=== PATIENT | female | born 1930 | race Caucasian/White ===

== ENCOUNTER 2017-01-17 10:09 | Inpatient (IN) | payer OTHER ==
[~2017-01-17] VITALS: Ht 165.1 cm; Wt 72.6 kg
--- NOTE | ~2017-01-17 | HC ---
[facility] [place] [address] CONSULTATION Name: MAXINE ASKEW Room #: 430-P [facility] IN M.R.#: [id number] Admission: 01/17/17 Attend Phys: Victor Manuel Swanson MD Discharge: Date of : [birth year] Report #: [id number] THIS REPORT FOR: //name// CC: FAM unknown Victor Manuel Swanson DATE OF SERVICE: 01/17/2017 REFERRING PROVIDER: Victor Manuel Swanson M.D. REASON FOR CONSULTATION: Rectal mass. HISTORY OF PRESENT ILLNESS: The patient is an 86-year-old female, who has had constipation for the last couple of days, where she was given a Dulcolax suppository with no relief. As the patient lives in an assisted living, the front loader residential driver presented with the patient today to the emergency room with a history of noticing a large rectal mass with bleeding this morning. The patient denies any discomfort, nausea, vomiting, or diarrhea, but has been battling her constipation. The patient was evaluated in the emergency room with laboratories and a chest x-ray, as well as physical exam. As the patient has a very large rectal mass prolapsed outside of the anal verge that was bleeding, she was admitted for definitive management. PAST MEDICAL HISTORY: Hypertension, pacemaker, chronic urinary tract infections, hypercholesterolemia, and questionable dementia. MEDICATIONS: Aspirin, Aricept, Lasix, Synthroid, Namenda, Neurontin, Tylenol, Tums, Imodium, milk of magnesia, Ativan, MiraLax, Anusol, and hydroxyzine. ALLERGIES: SULFA, HYDROCHLOROTHIAZIDE, and ZOLOFT. SOCIAL HISTORY: The patient does not utilize tobacco, alcohol, or illicit drugs. FAMILY HISTORY: Reviewed and noncontributory. REVIEW OF SYSTEMS: GENERAL: The patient denies nocturnal fevers or chills. HEENT: No change in vision or change in hearing. NECK: No swelling or difficulty swallowing. HEART: No chest pain or palpitations. LUNGS: No cough or shortness of breath. ABDOMEN: No nausea, no vomiting. GENITOURINARY: No dysuria or hematuria. ENDOCRINE: No polyuria or polydipsia. HEMATOLOGIC: No history of bleeding or easy bruising. [facility] [address] [place] [address] CONSULTATION Name: MAXINE ASKEW Room #: 430-P [facility] IN ..#: [id number] Admission: 01/17/17 Attend Phys: Victor Manuel Swanson MD Discharge: Date of : [birth year] Report #: [id number] EXTREMITIES: No history of weakness or limited range of motion. NEUROLOGIC: No history of syncope or near syncopal episodes. SKIN AND INTEGUMENT: No history of abnormal lesions or moles. PSYCHIATRIC: No history of anxiety or depression. PHYSICAL EXAMINATION: VITAL SIGNS: Temperature of 98.2, pulse 83, respirations 16, blood pressure of 143/86. GENERAL: Alert, in no acute distress. HEENT: Normocephalic and atraumatic. Pupils are equal, round, and reactive to light. NECK: Supple, without lymphadenopathy. Trachea midline. HEART: Regular rate and rhythm. LUNGS: Clear to auscultation bilaterally. ABDOMEN: Soft. Nontender and nondistended. GENITOURINARY: Normal external female genitalia. EXTREMITIES: No clubbing or cyanosis, but does have 1+ edema of the bilateral lower extremities. NEUROLOGIC: Cranial nerves 2-12 are grossly intact. PSYCHIATRIC: Normal mood and affect. SKIN AND INTEGUMENT: No abnormal lesions or moles. RECTAL: The patient has a 5 cm prolapsed rectal mass, that is extremely firm, necrotic, and fungating, that is vascular in appearance. This is nontender to palpation. LABORATORY AND X-RAY DATA: CBC showed white blood cell count of 5800, hemoglobin 13.8, platelets 193,000. Creatinine 1.0. Lactic acid 1.9. Chest x-ray: No acute cardiopulmonary process. INR 1.1 with PTT of 25.2. ASSESSMENT AND PLAN: An 86-year-old female with a history of constipation and multiple other medical issues, who now has evidence of an approximate 5 cm vascularized firm, friable, necrotic, and fungating mass prolapsed through the anal verge that appears to be rectal in nature. This could very well be just a simply thrombosed large hemorrhoid, or it could be a malignant process of the rectum. Nonetheless, as it is bleeding and friable, I will plan on rectal exam under anesthesia with excision of this mass for definitive management and diagnosis. The patient just had food, and as such, we plan first thing in the morning, as she will be made n.p.o. after midnight. I sincerely appreciate this consult. I will follow closely and leave any further recommendations in the patient's chart as appropriate. <ELECTRONICALLY SIGNED> By: Eddie Hutchinson MD, FACS 01/19/17 0842 [id number] 44 Eddie Hutchinson MD, FACS /nt
--- NOTE | ~2017-01-17 | EKG ---
[place] [address] [facility] [address] ELECTROCARDIOGRAM REPORT Name: MAXINE ASKEW Room #: 430-P ADM IN M.R.#: [id number] Admission: 01/17/17 Attend Phys: Victor Manuel Swanson MD Discharge: Date of : [birth year] Report #: [id number] THIS REPORT FOR: //name// [facility] ED Test Date: 2017-01-17 Test Time: 10:58:18 Pat Name: MAXINE ASKEW Department: Room: 430 Gender: F Rip Saw Operator: SHARMIN : [id number] Requested By: Salma Zuniga Order Number: [id number] MD: Peter Pires Measurements Intervals [place] Rate: 76 P: 46 MN: 195 QRS: 41 QRSD: 109 T: 40 QT: 410 QTc: 462 Interpretive Statements Sinus rhythm Supraventricular bigeminy No previous ECG available for comparison Electronically Signed On 01-19-2017 13:45:09 CDT by Peter Pires [email or web address] <ELECTRONICALLY SIGNED> By: Peter Pires MD, [facility] 01/19/17 1345 1058 1058 Peter Pires MD, FACC /EPI
--- NOTE | ~2017-01-17 | O ---
[facility] [place] [address] OPERATIVE REPORT Name: MAXINE ASKEW Room #: 430-P ADM IN M.R.#: [id number] Admission: 01/17/17 Attend Phys: Victor Manuel Swanson MD Discharge: Date of : [birth year] Report #: [id number] THIS REPORT FOR: //name// CC: FAM unknown Victor Manuel Swanson DATE OF SERVICE: 01/18/2017 PREOPERATIVE DIAGNOSIS: Prolapsed bleeding rectal mass. POSTOPERATIVE DIAGNOSIS: Prolapsed bleeding rectal mass. PROCEDURES: 1. Rectal exam under anesthesia. 2. Transanal full thickness excision of a friable, fungating, bleeding, and necrotic rectal mass. SURGEON: Eddie uHtchinson M.D. BUSINESS APPLICATIONS ANALYST: None. ANESTHESIA: General endotracheal anesthesia. ESTIMATED BLOOD LOSS: 10 mL. COMPLICATIONS: None appreciated. SPECIMEN: Rectal mass to pathology. INDICATIONS: The patient is an 86-year-old female, who resides at an assisted living facility and was noted to have significant bleeding upon wiping yesterday. Upon evaluation, the local vice president of nursing noted a large fungating mass, protruding from the patient's anus, and as such, she was transitioned to the Emergency Room for evaluation, whereby she was admitted. On exam, at the bedside, she had a 5 cm mass, that was necrotic and fungating, and friable with blood, emanating from the surface of it. That would require the above-mentioned procedures today. Upon exam, intraoperatively, it was noted to emanate from the mucosa of the rectum, approximately 5 cm proximal to the anal verge right at the dentate line. As such, indication was for the above-mentioned procedures today. DESCRIPTION OF PROCEDURE: After explaining the risks, benefits, and alternatives of the procedure and obtaining consent, the patient was brought to the operating room and placed supine on her hospital bed. After conducting a thorough timeout procedure, verifying correct patient and procedure, the patient was given general endotracheal anesthesia. Once adequate anesthesia was obtained, her SCDs were hooked up to the pneumatic compression device. She was [facility] [address] [place] [address] OPERATIVE REPORT Name: MAXINE ASKEW Room #: 430-P [facility] IN M.R.#: [id number] Admission: 01/17/17 Attend Phys: Victor Manuel Swanson MD Discharge: Date of : [birth year] Report #: [id number] given a preoperative dose of antibiotics in line with the SCIP protocol. The patient was now positioned on the operating room table in the prone sandra-knife position with all pressure points appropriately padded. The patient's anus and rectum was now prepped and draped in the standard surgical sterile fashion. A rectal speculum was then lubricated and placed in the rectum, and all mucosa was evaluated. The patient did have a boggy rectum, consistent with internal hemorrhoids throughout; however, the fungating mass appeared to arise from the mucosa, separate from a hemorrhoidal pillar. This was extremely firm and necrotic, as well as fungating, and as such, would require transanal full thickness excision, in case this is a true cancer. A 5 mL of 0.5% Marcaine with epinephrine were then used to anesthetize the mucosa around the stalk of the mass, which was broad-based and oriented in the longitudinal dimension. #10 bladed scalpel was used to create an elliptical and mucosal incision around the base. Electrocautery was used to dissect down in a full thickness fashion including the muscularis propria. The handheld LigaSure device was now utilized to transect it at its stalk for hemostasis. This was then passed off the field as specimen. I then utilized 3-0 chromic in multiple layers, first layer grabbing nearly full thickness bites through the muscularis to close the rectal tissues in standard running fashion from proximal to distal. This abutted the anal verge with the epithelium at the edge of the incision. I then used an additional 3-0 chromic in standard running fashion to close the mucosa, from proximal to distal fashion. This was then anchored to the epithelium at the anal verge for short 1.5 cm run to ensure there was no evidence of potential point of entry for wound infection moving forward. This was all tied down showing, complete repair of the mucosa and as it did not enter the sphincteric complex. She should maintain continence without issue. Digital rectal exam was now performed showing smooth mucosa with no further defect. Exam with the speculum, one additional time, showed complete hemostasis, and the wound appeared to be oriented nicely. I then placed a roll of piece of Gelfoam in the anorectal region for assistance with long-term hemostasis. At the end of the procedure, all instrument, needle, and sponge counts were correct. The patient tolerated the procedure without incident, was awakened in the operating room and transitioned to the recovery room in stable condition with no apparent complications. <ELECTRONICALLY SIGNED> By: Eddie Hutchinson MD, FACS 01/19/17 0842 [id number] 1521 Eddie Hutchinson MD, FACS /nt
--- NOTE | ~2017-01-17 | S ---
[facility] [place] [address] SURGICAL PATH RPT PROCEDURE Name: PARI DORSEY Room #: 430-P [facility] IN M.R.#: [id number] Admission: 01/17/17 Date of : [birth year] Discharge: 01/20/17 Report #: [id number] Path Case #: [id number] PATHOLOGY REPORT COLLECTION DATE: 01/18/2017 RECEIVED DATE: 01/21/2017 SUBMITTING PHYS: Dr. Eddie Hutchinson OTHER PHYS: Dr. 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 - (SEE COMMENT AND SYNOPTIC REPORT) CLINICAL Clinical History: Other: mass SPECIMEN Specimen: Anorectal junction Procedure: Local excision (transanal disk excision) Specimen Integrity: Intact Tumor Site: Anorectal junction TUMOR Histologic Type: Other: Malignant Melanoma Histologic Grade: G3: Poorly differentiated EXTENT Tumor Size: Greatest dimension (cm): 4.2 Microscopic Tumor Extension: Tumor invades perianal skin MARGINS Margins: Margins uninvolved by invasive carcinoma Distance of Invasive Carcinoma from Closest Margin (mm): Specify (mm): 1 Specify Margin (if possible): Specify Margin: proximal Carcinoma in situ (high grade squamous intraepithelial lesion) absent ACCESSORY FINDINGS Lymph-Vascular Invasion: Not identified Perineural Invasion: Not identified [facility] [address] [place] [address] SURGICAL PATH RPT PROCEDURE Name: PARI DORSEY Room #: 430-P [facility] IN [facility]#: [id number] Admission: 01/17/17 Date of : [birth year] Discharge: 01/20/17 Report #: [id number] Path Case #: [id number] SPECIAL STUDIES Ancillary Studies: Not performed STAGE (PTNM) Primary Tumor (pT): pT2: Tumor more than 2 cm but not more than 5 cm in greatest dimension ADDITIONAL NON-TUMOR Additional Pathologic Findings: None identified COMMENT: This case was also reviewed by Dr. Amber Martinez. 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 This case will also be discussed with Dr. Eddie Hutchinson on 01/23/2017 at 1pm. (RENETTA:; d/t: 01/23/17) PATHOLOGIST: Chapo Ward M.D. REPORT ELECTRONICALLY SIGNED BY: Chapo Ward M.D. DATE/TIME: 01/23/2017 15:02 * * * * * * * * * * * * GROSS PATHOLOGY: The specimen is received in formalin labeled "Pari Dorsey, rectal mass". Received is a segment of pale rojas to red-brown, partially crusted epithelial covered tissue measuring 4.2 x 3.7 x 3.2 cm in greatest dimensions. The surgical margin is inked. Sectioning reveals white-rojas to red-brown cut surfaces. Alternating sections are submitted in cassettes A1 through A8, additionally bisected into proximal (the inked margin) and distal aspects of each segment. (CAA; 01/21/2017) After initial microscopic examination, further examination of the specimen reveals the blackened aspect of the cut surfaces to be located 0.5 cm from the closest inked margin. Additional market survey representative sections are submitted in cassettes A9 through A12 divided into proximal (inked margin) and distal aspects of each segment. (CAA; 01/22/2017) CLINICAL HISTORY: Rectal mass [address] [address] SURGICAL PATH RPT PROCEDURE Name: PARI DORSEY Room #: 430-P [facility] IN M.R.#: [id number] Admission: 01/17/17 Date of : [birth year] Discharge: 01/20/17 Report #: [id number] Path Case #: [id number] INITIAL CPT CODE(S): A; 96740, 28737, 29971, 12707 Professional services performed by [facility], [address] [place] [address]. Technical services performed by [employer], [address] [place] [address], [address], [place] [address]. [facility] [place] [address] PHONE: [phone] DIRECTOR: Edgar Zavaleta M.D. * * * END OF REPORT * * *
[~2017-01-17 10:09] MED LIST: ALDACTONE25 MG PO; ANTACID500 MG PO; ARICEPT10 M1 PO; ASPIR 8181 M1 PO; CRANBERRY450 M1 PO; GABAPENTIN 100100 MG PO; LASIX 40 MG TAB40 M2 PO; LEVOTHYROXIN0.025 MG PO; LIPITOR 20 MG T20 M1 PO; LISINOPRIL20 MG PO; LOPERAMIDE 2 MG2 M1 PO; MILK OF MA2400 MG/10 PO; MUCINEX TA600 MG/TA2 PO; NAMENDA 10 MG T10 MG PO; NORVASC5 MG PO; RISPERDAL M-TA0.5 MG PO; TESSALON PERLE100 MG PO; TYLENOL325 MG PO; ULTRAM 50MG TAB50 MG PO; VITAMINC500 PO
[2017-01-17 10:10] VITALS: BP 143/86
[2017-01-17] MEDS ORDERED: ATIVAN0.5 MG PO (10:35)
[2017-01-17] MEDS ORDERED: MIRALAX17 GM PO (10:37)
[2017-01-17] MEDS ORDERED: ANUSOL-HC25 MG RECTAL (10:38)
[2017-01-17] MEDS ORDERED: HYDROXYZINE HCL25 M1 PO (10:39)
[2017-01-17 11:02] LABS: HEMATOCRIT 40.7 % (37.0-47.0); HEMOGLOBIN 13.8 gm/dL (12.0-15.0); MCH 32.7 pg (26.0-34.0); MCHC 33.9 g/dL (28.0-37.0); MCV 96.5 fL (80.0-100.0); PLATELET COUNT 193 thou/uL (150-400); RBC 4.21 mil/uL (4.20-5.00); RDW 12.2 % (10.5-14.5); WBC 5.8 thou/uL (4.0-11.0)
[2017-01-17 11:12] LABS: MANUAL DIFF YES
[2017-01-17 11:15] LABS: CALCIUM 8.9 mg/dL (8.5-10.1); POTASSIUM 3.7 mmol/L (3.5-5.1)
[2017-01-17 11:18] LABS: APTT 25.2 Seconds (24.5-32.8); INR 1.1; PROTIME 11.1 Seconds (9.3-11.4)
[2017-01-17 11:35] LABS: ABSOLUTE NEUTROPHILS 3.2 thou/uL (1.4-8.2); ANISOCYTOSIS SLIGHT; TOTAL CELL COUNT 100
[2017-01-17 11:40] VITALS: BP 136/60
[2017-01-17 16:37] VITALS: BP 149/76
[2017-01-17 20:00] VITALS: BP 146/62
[2017-01-18] VITALS (13 sets, daily range): BP systolic 121–177; BP diastolic 62–144
[2017-01-18 05:23] LABS: HEMATOCRIT 37.5 % (37.0-47.0); HEMOGLOBIN 12.8 gm/dL (12.0-15.0); MCH 32.8 pg (26.0-34.0); MCHC 34.3 g/dL (28.0-37.0); MCV 95.8 fL (80.0-100.0); RBC 3.91 mil/uL (4.20-5.00); RDW 12.4 % (10.5-14.5); WBC 6.6 thou/uL (4.0-11.0)
[2017-01-18 05:37] LABS: CALCIUM 8.5 mg/dL (8.5-10.1); CREATININE 0.9 mg/dL (0.6-1.0); MAGNESIUM 2.5 mg/dL (1.8-2.4); POTASSIUM 3.6 mmol/L (3.5-5.1)
[2017-01-19 05:45] VITALS: BP 118/68
[2017-01-19 05:57] LABS: HEMATOCRIT 34.7 % (37.0-47.0); HEMOGLOBIN 11.8 gm/dL (12.0-15.0); MCHC 34.1 g/dL (28.0-37.0); MCV 96.9 fL (80.0-100.0); RBC 3.58 mil/uL (4.20-5.00); RDW 12.3 % (10.5-14.5); WBC 10.6 thou/uL (4.0-11.0)
[2017-01-19 06:08] LABS: CALCIUM 8.2 mg/dL (8.5-10.1); POTASSIUM 4.5 mmol/L (3.5-5.1)
[2017-01-19 08:40] VITALS: BP 113/65
[2017-01-19 17:47] VITALS: BP 136/63
[2017-01-19 20:00] VITALS: BP 134/66
[2017-01-20 04:30] VITALS: BP 159/85
[2017-01-20 07:29] VITALS: BP 152/88
== END 2017-01-20 15:14 | DRG 348 ==
LOC: ER 10:09 → EROBS 10:55 → 4E 10:55
PROVIDERS: Nurse Practitioner; Surgery
PROC: 0DBP7ZZ Excision of Rectum, Via Natural or Artificial Opening (ICD-10-PCS; principal; 2017-01-18)
DX: K62.3 Rectal prolapse (principal); E44.1 Mild protein-calorie malnutrition; K62.89 Other specified diseases of anus and rectum; K59.00 Constipation, unspecified; I10 Essential (primary) hypertension; E78.5 Hyperlipidemia, unspecified; F03.90 Unspecified dementia, unspecified severity, without behavioral disturbance, psychotic disturbance, mood disturbance, and anxiety; E03.9 Hypothyroidism, unspecified; F41.9 Anxiety disorder, unspecified; R60.9 Edema, unspecified; K64.5 Perianal venous thrombosis; E78.00 Pure hypercholesterolemia, unspecified; I49.5 Sick sinus syndrome; Z79.82 Long term (current) use of aspirin; Z79.899 Other long term (current) drug therapy; Z88.2 Allergy status to sulfonamides; Z88.8 Allergy status to other drugs, medicaments and biological substances; Z95.0 Presence of cardiac pacemaker
CPT/HCPCS: 10084; 10783; 50010; 50101; 50386; 50942; 62110; 62900; 70005